=== PATIENT | female | born 1990 | race Caucasian/White ===

== ENCOUNTER 2018-04-22 20:48 | Emergency (ER) | payer OTHER ==
[~2018-04-22] VITALS: Ht 167.6 cm; Wt 60.0 kg
[2018-04-22] MEDS ORDERED: LIDOCAINE-MPF 1%, 5ML INFIL ONE (21:00)
[2018-04-22] MEDS ORDERED: LIDOCAINE-MPF 2%, 2ML ONE (21:06)
[2018-04-22] MEDS ORDERED: L.E.T SOLUTION TP ONE ×2 (21:56→22:00)
[2018-04-22 22:33] VITALS: BP 116/84
== END 2018-04-22 22:41 | disposition home or self-care (01) ==
LOC: ED 22:05
DX: L02.214 Cutaneous abscess of groin (principal)
CPT/HCPCS: 10060; 99283

== ENCOUNTER 2018-04-24 12:08 | Emergency (ER) | payer OTHER ==
[~2018-04-24] VITALS: Ht 167.6 cm; Wt 60.0 kg
[2018-04-24 12:17] VITALS: BP 113/73
== END 2018-04-24 12:44 | disposition home or self-care (01) ==
LOC: ED 12:10
DX: Z48.00 Encounter for change or removal of nonsurgical wound dressing (principal)
CPT/HCPCS: 99283